=== PATIENT | female | born 1955 | race American Indian/Alaskan Native ===

== ENCOUNTER 2017-05-11 07:35 | Day surgery (SDC) | payer OTHER ==
[2017-05-11] MEDS ORDERED: ECOTRIN PO ONE (08:56)
[2017-05-11] MEDS ORDERED: NACL 0.9% 500 ML 500 ML ONE (08:56)
[2017-05-11] MEDS ORDERED: NACL 0.9% 500 ML 500 ML IV SCH (09:00)
[2017-05-11] MEDS ORDERED: ECOTRIN PO NR (09:00)
[2017-05-11] MEDS ORDERED: CALAN ONE (09:22)
[2017-05-11] MEDS ORDERED: HEPARIN 10,000 UNITS/10 ML ONE (09:22)
[2017-05-11] MEDS ORDERED: HEPARIN/NS 5000 UNIT/500ML(CATH LAB) 1,000 ML IR ONE (09:22)
[2017-05-11] MEDS ORDERED: SUBLIMAZE ONE (09:23)
[2017-05-11] MEDS ORDERED: NITROGLYCERIN SYRINGE 0 ML ONE (09:23)
[2017-05-11] MEDS ORDERED: VERSED ONE (09:23)
[2017-05-11] MEDS ORDERED: XYLOCAINE 2% INFILTRATI ONE (09:23)
--- NOTE | 2017-05-11 12:26 | Cardiac Catherization Report ---
PROCEDURE: Cardiac catheterization. INDICATION FOR PROCEDURE: A 61-year-old Samoan speaking female with history of abnormal nuclear stress test, dilated cardiomyopathy with history of hypertension and hyperlipidemia being evaluated for dyspnea on exertion. The patient has sinus rhythm with left bundle branch-branch block. Echocardiogram showed ejection fraction of 20-25%. Mild asymmetric left septal hypertrophy was noted. Nuclear imaging showed small mild reversible apical perfusion defect. The patient is scheduled for coronary angiography and left heart catheterization because of the above problems. The patient and family were explained of the procedure, potential complications, and alternatives of therapy available through the family coil tester. The patient is agreeable to proceed with cardiac catheterization. DESCRIPTION OF PROCEDURE: The patient was brought to the catheterization laboratory in a fasting condition. The right wrist area and forearm thoroughly cleansed with Betadine solution. Sterile drapes were applied. The patient was sedated with IV Versed and fentanyl. Right radial artery puncture was made using 21-gauge arterial puncture needle. Subsequently, 5-Samoan sheath was introduced. A 5-Samoan multipurpose catheter was used to obtain the angiograms of the left ventricle done in CONTRERAS projection using hand injection followed by angiograms of the right coronary artery and left coronary artery. At the end of the procedure, catheter and sheath were removed. Good hemostasis was achieved with pressure bandage. The patient tolerated the procedure well. Following findings were noted: 1. Aortic pressure 165/89, left ventricular pressure 168/29. No gradient across the aortic valve. Estimated ejection fraction of 25-30%. 2. Left ventriculogram done in CONTRERAS projection shows left ventricular size to be mildly dilated with moderate diffuse hypokinesis. Ejection fraction was felt to be around 25-30%. Mitral regurgitation could not be evaluated because of limited amount of dye injected. 3. Right coronary artery dominant vessel arises normally from right coronary cusp. This vessel is angiographically smooth and normal. However, this is tortuous dominant vessel. 4. Left coronary artery arises normally from left coronary cusp. Left main is very short immediately dividing the LAD and circumflex arteries. The LAD and its branches and circumflex artery and its branches are angiographically smooth and normal. However, they are very tortuous. 5. Collaterals none. FINAL IMPRESSION: 1. Mildly dilated left ventricle with diffuse hypokinesis, ejection fraction of 25-30%. 2. Essentially normal coronary anatomy, arteries were tortuous. 3. Right radial artery was used for access. Good hemostasis was achieved by pressure bandage. The patient received moderate sedation after being felt appropriate for the same. Sedation was started at 11:20 using IV Versed and fentanyl and the patient was monitored continuously with EKG, pulse oximetry, and blood pressure monitoring. The patient's monitoring was discontinued at 11:35 a.m. The patient was transferred to the room in stable condition. The patient is breathing normally and oriented x 3, comfortable. The patient will be monitored in recovery area until she is stable, at which time she will be discharged home, and the patient will be continued on medical therapy. Findings were explained to the patient's family who can understand [place]. The patient herself cannot speak [place]. Procedure is uncomplicated. JOB# [id number] DRAGAN/LILIANA CAMARENA
[2017-05-11 14:31] VITALS: BP 133/87
== END 2017-05-11 14:30 | disposition home or self-care (01) ==
LOC: CATHLABREC 07:35
PROVIDERS: ATTEND Internal Medicine
DX: I42.0 Dilated cardiomyopathy (principal); I44.7 Left bundle-branch block, unspecified; I10 Essential (primary) hypertension; E78.5 Hyperlipidemia, unspecified; E66.01 Morbid (severe) obesity due to excess calories; M10.9 Gout, unspecified; Z79.82 Long term (current) use of aspirin; Z68.41 Body mass index [BMI] 40.0-44.9, adult
CPT/HCPCS: 93005; 93010; 93458; 99156; C1894; J1644; J2250; J3010; J7040; Q9967